=== PATIENT | female | born 2000 | race American Indian/Alaskan Native ===

== ENCOUNTER 2021-06-20 06:48 | Outpatient (CLI) | payer OTHER, MEDICAID ==
[2021-06-20 07:58] VITALS: BP 102/65
[2021-06-20 08:04] LABS: Bilirubin,Urine NEG (Negative); Blood,Urine SM (Negative); Color,Urine Straw (Yellow); Protein,Urine <15 mg/dL mg/dL (Negative); Urobilinogen,Urine < 2.0 mg/dL (<2.0)
[2021-06-20] MEDS ORDERED: LACTATED RINGERS 500 ML IV ONE (08:45)
[2021-06-20] MEDS ORDERED: LACTATED RINGERS 1,000 ML IV SCH (09:00)
== END 2021-06-20 10:14 | disposition home or self-care (01) ==
LOC: TRG 06:48 → APU 07:16 → TRG 10:14
PROVIDERS: ATTEND Obstetrics & Gynecology
DX: O26.852 Spotting complicating pregnancy, second trimester (principal); O26.892 Other specified pregnancy related conditions, second trimester; R10.9 Unspecified abdominal pain; Z3A.22 22 weeks gestation of pregnancy
CPT/HCPCS: 59025; 81001; 96360

== ENCOUNTER 2021-09-11 15:12 | Outpatient (CLI) | payer OTHER, MEDICAID ==
[2021-09-11 16:27] VITALS: BP 107/67
[2021-09-11] MEDS ORDERED: LACTATED RINGERS 1,000 ML IV ONE (16:29)
[2021-09-11] MEDS ORDERED: LACTATED RINGERS 500 ML IV ONE (16:32)
[2021-09-11] MEDS ORDERED: TERBUTALINE 1 MG/1 ML INJ SUB-Q ONE (16:35)
[2021-09-11 17:15] LABS: Bilirubin,Urine NEG (Negative); Blood,Urine NEG (Negative); Color,Urine Yellow (Yellow); Mucus,Urine 2+ /HPF
== END 2021-09-11 19:23 | disposition home or self-care (01) ==
LOC: TRG 15:12 → APU 15:30 → TRG 19:23
PROVIDERS: ATTEND Student in an Organized Health Care Education/Training Program
DX: O62.9 Abnormality of forces of labor, unspecified (principal); Z3A.34 34 weeks gestation of pregnancy
CPT/HCPCS: 59025; 81001; 96360; 96372; J3105; J7120; 96361

== ENCOUNTER 2021-10-23 13:56 | Outpatient (CLI) | payer MEDICAID, OTHER ==
[2021-10-23 14:10] VITALS: BP 111/68
== END 2021-10-23 16:02 | disposition home or self-care (01) ==
LOC: TRG 13:56 → APU 13:57 → TRG 16:02
PROVIDERS: ATTEND Obstetrics & Gynecology
DX: Z34.93 Encounter for supervision of normal pregnancy, unspecified, third trimester (principal); Z3A.40 40 weeks gestation of pregnancy
CPT/HCPCS: 59025